=== PATIENT | female | born 1960 | race Caucasian/White ===

== ENCOUNTER 2019-07-07 05:07 | Day surgery (SDC) | payer MEDICAID ==
[2019-07-06 10:35] LABS: ALANINE AMINOTRANSFERASE 58 U/L (12-78); ALBUMIN 4.2 g/dL (3.4-5.0); ANION GAP 5 mmol/L (5-15); CHLORIDE 108 mmol/L (98-107); CREATININE 0.76 mg/dL (0.55-1.02)
[2019-07-06 10:37] LABS: ALKALINE PHOSPHATASE 106 U/L (45-117); BILIRUBIN,TOTAL 0.6 mg/dL (0.2-1.0); TOTAL PROTEIN 7.7 g/dL (6.4-8.2)
[~2019-07-07] VITALS: Ht 165.1 cm; Wt 98.0 kg
[~2019-07-07 05:07] MED LIST: ESCI20TA PO; GLIP2.5T3 PO; METF500T17 PO
[2019-07-07] MEDS ORDERED: LACTATED RINGERS 1,000 ML IV SCH (05:58)
[2019-07-07 06:04] VITALS: BP 135/90
[2019-07-07] MEDS ORDERED: EPINEPHRINE 1 MG/ML, 1ML ONE (06:20)
[2019-07-07] MEDS ORDERED: BUPIVACAINE/PF 0.25% ONE (06:20)
[2019-07-07] MEDS ORDERED: FENTANYL PF 100 MCG/2ML ONE (06:32)
[2019-07-07] MEDS ORDERED: MIDAZOLAM 1 MG/ML, 2ML ONE (06:32)
[2019-07-07] MEDS ORDERED: GABAPENTIN 300 MG CAPSULE ONE (06:39)
[2019-07-07] MEDS ORDERED: SCOPOLAMINE PATCH, 1.5MG PATCH.TD72 TD ONE (06:39)
[2019-07-07] MEDS ORDERED: ACETAMINOPHEN 500 MG TABLET ONE (06:39)
[2019-07-07] MEDS ORDERED: PHENYLEPHRINE 10 MG/ML ONE (07:00)
[2019-07-07] MEDS ORDERED: EPHEDRINE 50 MG/ML, 1ML ONE (07:00)
[2019-07-07] MEDS ORDERED: ROCURONIUM 10MG/ML,5ML ONE (09:39)
[2019-07-07] MEDS ORDERED: DEXAMETHASONE 4 MG/ML, 1ML ONE (09:39)
[2019-07-07] MEDS ORDERED: NEOSTIGMINE 1 MG/ML, 10ML ONE (09:39)
[2019-07-07] MEDS ORDERED: SUCCINYLCHOLINE 20 MG/ML, 10ML ONE (09:39)
[2019-07-07] MEDS ORDERED: CEFAZOLIN 1,000 MG ONE (09:39)
[2019-07-07] MEDS ORDERED: GLYCOPYRROLATE 0.2MG/1ML, 5ML ONE (09:39)
[2019-07-07] MEDS ORDERED: PROPOFOL 10 MG/ML, 20ML ONE (09:39)
[2019-07-07] MEDS ORDERED: ONDANSETRON 2MG/ML, 2ML ONE (09:39)
== END 2019-07-07 10:35 | disposition home or self-care (01) ==
LOC: OUT 05:07
PROVIDERS: ATTEND Orthopaedic Surgery
DX: S43.431A Superior glenoid labrum lesion of right shoulder, initial encounter (principal); M75.111 Incomplete rotator cuff tear or rupture of right shoulder, not specified as traumatic; M75.41 Impingement syndrome of right shoulder; M19.011 Primary osteoarthritis, right shoulder; D17.21 Benign lipomatous neoplasm of skin and subcutaneous tissue of right arm; F32.9 Major depressive disorder, single episode, unspecified; F15.90 Other stimulant use, unspecified, uncomplicated; E11.9 Type 2 diabetes mellitus without complications; Z85.820 Personal history of malignant melanoma of skin; Z98.890 Other specified postprocedural states; Z87.891 Personal history of nicotine dependence; Z79.84 Long term (current) use of oral hypoglycemic drugs; X58.XXXA Exposure to other specified factors, initial encounter; Y93.89 Activity, other specified; Y92.89 Other specified places as the place of occurrence of the external cause; Y99.8 Other external cause status
CPT/HCPCS: 01630; 23076; 29823; 29824; 29826; 29827; 36415; 64415; 80053; 82962; 88304; 93005; C1713; J0171; J0330; J0690; J1100; J2250; J2370; J2405; J2704; J3010; J3490; J7120; 88305; J2710